=== PATIENT | female | born 1975 | race Hispanic/Latino ===

== ENCOUNTER 2019-10-22 10:45 | Emergency (ER) | payer OTHER ==
[2019-10-22] MEDS ORDERED: LORAZEPAM 2 MG/ML 1 ML VIAL ONE (11:07)
[2019-10-22] MEDS ORDERED: ZIPRASIDONE MESYLATE 20 MG/VIAL IM ONE (11:07)
[2019-10-22 11:51] LABS: APPEARANCE,URINE Cloudy (CLEAR); BILIRUBIN,URINE Negative (NEGATIVE); COLOR,URINE Dark Yellow (YELLOW); GLUCOSE, URINE (UA) Negative (NEGATIVE); KETONES,URINE 40 mg/dL (NEGATIVE); LEUKOCYTE ESTERASE ,URINE Small (NEGATIVE); NITRATE,URINE Negative (NEGATIVE); OCCULT BLOOD,URINE Negative (NEGATIVE); PROTEIN,URINE Trace mg/dL (NEGATIVE)
[2019-10-22 11:55] LABS: HCG,QUAL RESULT NEGATIVE (NEGATIVE)
[2019-10-22 11:57] LABS: AMPHET/METH SCREEN,URINE NEGATIVE (NEGATIVE); BARBITURATE SCREEN, URINE NEGATIVE (NEGATIVE); BENZODIAZEPINES SCREEN,URINE NEGATIVE (NEGATIVE); CANNABINOID SCREEN,URINE NEGATIVE (NEGATIVE); COCAINE SCREEN,URINE NEGATIVE (NEGATIVE); OPIATE SCREEN,URINE NEGATIVE (NEGATIVE); PHENCYCLIDINE SCREEN,URINE NEGATIVE (NEGATIVE)
[2019-10-22 12:06] LABS: BASOPHILS % (AUTO) 0.9 % (0.0-5.0); EOSINOPHILS % (AUTO) 0.8 % (0.0-8.0); HEMATOCRIT 37.9 % (36-48); LYMPHOCYTES % (AUTO) 25.3 % (21.0-51.0); MEAN CORPUSCULAR HEMOGLOBIN 29.7 pg (27.0-33.0); MEAN CORPUSCULAR HGB CONC 33.5 g/dL (32.0-36.0); MEAN CORPUSCULAR VOLUME 88.8 fL (79-99); MONOCYTES % (AUTO) 6.3 % (3.0-13.0); NEUTROPHILS % (AUTO) 66.6 % (40.0-77.0); PLATELET COUNT (AUTO) 255 K/uL (130-400); RED BLOOD CELL COUNT(AUTO) 4.27 MIL/uL (4.00-5.50); WHITE BLOOD COUNT (AUTO) 7.4 K/uL (4.8-10.8)
[2019-10-22 12:40] LABS: BACTERIA,URINE Few /HPF (None Seen); MUCUS,URINE Few LPF (None Seen); RBC,URINE 0-1 /HPF (0-1); SQUAMOUS EPITHELIAL CELL,UR Moderate /HPF (0-2)
[2019-10-22 12:43] LABS: SALICYLATE < 2.8 mg/dL (2.8-20.0)
[2019-10-22 12:44] LABS: ACETAMINOPHEN < 1 mcg/mL (10-30); ALCOHOL, BLOOD < 3 mg/dL (0-10)
[2019-10-22 13:12] LABS: CARBON DIOXIDE 20 mmol/L (21-32); CHLORIDE 102 mmol/L (101-111); CREATININE 0.8 mg/dL (0.5-1.5); GLOMERULAR FILTR. RATE CALC 83 mL/min (>60); GLUCOSE,RANDOM 87 mg/dL (70-105); SODIUM SERUM 136 mmol/L (136-145); UREA NITROGEN, BLOOD 18 mg/dL (7-18)
[2019-10-22 13:18] LABS: ALANINE AMINOTRANSFERASE 23 U/L (12-78); ALBUMIN 4.3 g/dL (3.5-5.0); ASPARTATE AMINOTRANSFERASE 21 U/L (10-37); BILIRUBIN,TOTAL 0.7 mg/dL (0.2-1.0)
[2019-10-22] MEDS ORDERED: POTASSIUM BICARB/CIT AC 25 MEQ TABLET.EFF ONE (13:20)
== END 2019-10-22 18:11 | disposition home or self-care (01) ==
LOC: EDH 10:45
DX: F29 Unspecified psychosis not due to a substance or known physiological condition (principal); F31.9 Bipolar disorder, unspecified
CPT/HCPCS: 36415; 80053; 80305; 81001; 81025; 82550; 85025; 87077; 87088; 87186; 93005; 96372 ×2; 99285; G0480 ×2; G0481; J2060; J3486

== ENCOUNTER 2024-07-29 02:13 | Emergency (ER) | payer BC, OTHER ==
[~2024-07-29] VITALS: Ht 160 cm; Wt 63.5 kg
[2024-07-29 02:14] VITALS: BP 131/89; PULSE 128; RESP 20; TEMP 98.5
== END 2024-07-29 02:27 | disposition left against medical advice (07) ==
LOC: EDH 02:13
DX: R03.0 Elevated blood-pressure reading, without diagnosis of hypertension (principal); Z53.21 Procedure and treatment not carried out due to patient leaving prior to being seen by health care provider

== ENCOUNTER 2024-08-16 16:12 | Emergency (ER) | payer BC ==
[~2024-08-16] VITALS: Ht 160 cm; Wt 60.3 kg
--- NOTE | 2024-08-16 16:29 | ERN ---
ED Note History of Present Illness Stated Complaint: MECHANICAL FALL Time Seen by MD: 16:15 Dictation: Patient is a 49-year-old female coming in today with a long history of being admitted to [facility] this weekend and she was in a wet bathroom it is the same the a same level fall. She states she landed on her back and left posterior shoulder. She states she had told the staff that she had fallen however they were busy with the another patient who was more psychiatric emergent then she was and could not tend to her at that time. She denies LOC no nausea vomiting no blood thinners states she does history of orthostasis and is dizzy apparently she is complaining of posterior pelvic pain more to the right, left posterior thoracic left posterior shoulder pain. She states she was discharged on Tuesday however did not think to go and be seen until today when she went to [facility] and was told to come to the emergency room. 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 INTEGUMENTARY: Negative except for HPI NEUROLOGICAL/PSYCH: Negative except for HPI dizziness HEMATOLOGIC/LYMPHATIC: Negative except for HPI All Systems Negative, Except as noted above. 13 point review of systems assessed and all negative except for above. Initial Vital Sign VS Vital Signs Date Time Temp Pulse Resp B/P (MAP) Pulse Ox O2 Delivery O2 Flow Rate FiO2 08/16/24 16:35 97.9 85 16 121/61 97 Room Air 08/16/24 16:49 0 21 Physical Exam Dictation Vital Signs reviewed General Appearance: Alert, oriented x 3, mild acute distress, well developed, nourished. Head and Face: non-traumatic. Eyes: PERRL, pink conjunctivas, eyelid no trauma, anterior chamber with arcus senilis. Ears: Pinnas intact and no signs of trauma or erythema ear canals clear and no discharge TM no erythema Nose: No discharge, no bleeding. Oropharynx: Mouth normal, tongue pink, pharynx clear,no erythema, tonsils no exudates, no abscesses noted, mucous membrane moist Neck: Supple, non-tender, no thyromegaly, no masses, no JVD, no bruits no midline spine pain Breast:Deferred Chest:No tenderness, no crepitus, no paradoxical movement, no retractions Lungs:Clear, well-ventilated, symmetric, no rales, no wheezing, no rhonchi, no stridor, good breath sounds bilaterally Heart: Regular rate, regular rhythm, no murmur, no gallops Vascular: no peripheral edema, Abdomen: Soft, positive bowel sounds, nondistended, no guarding, nontender, no rebound, no masses no hepatomegaly, no splenomegaly, no Zambrano's sign, no hernias. Rectal: Deferred Genital: Deferred Neurological: Normal speech, motor function intact, sensory function intact neurologically intact, speech is clear NIH is 0 Musculoskeletal: Neck nontender, right posterior pelvis and low lumbar tenderness. Also mild tenderness to the posterior left shoulder and left lateral thoracic area. Extremities: nontender, full range of motion Skin: Color pink, dry, no turgor, no rash, no lacerations, no abrasions, no contusions. Lymphatic: Deferred Results (Laboratory/Radiology) Laboratory/Radiology Laboratory Tests Test 08/16/24 16:47 White Blood Count 7.5 K/uL (4.8-10.8) Red Blood Count 4.46 MIL/uL (4.00-5.50) Hemoglobin 13.9 g/dL (12.0-16.0) Hematocrit 40.1 % (36-48) Mean Corpuscular Volume 89.9 fL (79-99) Mean Corpuscular Hemoglobin 31.2 pg (27.0-33.0) Mean Corpuscular Hemoglobin Concent 34.7 g/dL (32.0-36.0) Red Cell Distribution Width 12.1 % (11.0-15.5) Platelet Count 262 K/uL (130-400) Mean Platelet Volume 8.2 fL (7.5-10.5) Immature Granulocyte % (Auto) 0.1 % (0-1) Neutrophils (%) (Auto) 51.0 % (40.0-77.0) Lymphocytes (%) (Auto) 40.0 % (21.0-51.0) Monocytes (%) (Auto) 6.5 % (3.0-13.0) Eosinophils (%) (Auto) 1.6 % (0.0-8.0) Basophils (%) (Auto) 0.8 % (0.0-5.0) Neutrophils # (Auto) 3.8 K/uL (1.8-7.7) Lymphocytes # (Auto) 3.0 K/uL (1.0-4.8) Monocytes # (Auto) 0.5 K/uL (0.1-1.0) Eosinophils # (Auto) 0.12 K/uL (0.00-0.70) Basophils # (Auto) 0.06 K/uL (0.00-0.20) Absolute Immature Granulocyte (auto 0.01 K/uL (0-1) Nucleated Red Blood Cells 0.0 % (0.0-0.19) Sodium Level 139 mmol/L (136-145) Potassium Level 3.9 mmol/L (3.5-5.1) Chloride Level 105 mmol/L (101-111) Carbon Dioxide Level 31 mmol/L (21-32) Blood Urea Nitrogen 8 mg/dL (7-18) Creatinine 0.6 mg/dL (0.5-1.0) Glomerular Filtration Rate Calc 111 mL/min (>90) Random Glucose 93 mg/dL (70-105) Total Calcium 8.8 mg/dL (8.5-10.1) Troponin I High Sensitivity 4 ng/L (4-50) Serum Test, Qualitative NEGATIVE (NEGATIVE) Labs Reviewed?: Yes EKG Comment: EKG normal sinus rhythm/heart rate 74/axis normal/no ectopy ED Course ED Course Orders Procedure Category Date Status Time Pelvis 1-2vws RAD 08/16/24 Resulted 16:24 Shoulder Comp 2+Vws Lt RAD 08/16/24 Resulted 16:24 Thoracic Spine 2vws RAD 08/16/24 Resulted 16:24 Cbc With Differential LAB 08/16/24 Complete 16:24 Troponin I High LAB 08/16/24 Complete Sensitivity 16:24 12 Lead Ekg Tracing- EKG 08/16/24 Complete Technical 16:24 Basic Metabolic Panel LAB 08/16/24 Complete 16:24 Acetaminophen 500mg PHA 08/16/24 Complete Tab (Tylenol 500mg T 16:30 Testing, LAB 08/16/24 Complete Serum Hcg 17:01 Current Medications Medications (Trade) Dose Ordered Sig/Cira Route PRN Reason Start Time Stop Time Status Last Admin Dose Admin Acetaminophen (TYLenol 500MG TAB) 1,000 mg ONCE ONCE PO 08/16/24 16:30 08/16/24 16:40 DC 08/16/24 17:42 Vital Signs Date Time Temp Pulse Resp B/P (MAP) Pulse Ox O2 Delivery O2 Flow Rate FiO2 08/16/24 19:41 98.2 80 16 98 Room Air* 0 21 08/16/24 16:49 98.1 82 16 120/60 98 Room Air* 0 21 08/16/24 16:35 97.9 85 16 121/61 97 Room Air 1920/pelvic x-ray negative Left shoulder x-ray negative Thoracic x-ray negative 1925/patient is hemodynamically stable and neurologically intact. She will be discharged home with multiple contusions and told to follow up with the doctor at [facility] for any further complaints. HEART Score Response (Comments) Value History: Low suspicion (0) 0 Age: 45-65yrs (+1) 1 Risk Factors: No known risk factors (0) 0 Initial Troponin: Normal limit (0) 0 Total 1 Medical Decision Making MDM MDM: Differential diagnosis: ACS/AMI/electrolyte imbalance/dehydration/contusion/fra cture Rationale: Tests considered and ordered secondary to shared decision making include: Radiology/labs/EKG Previous outside records reviewed: Old ER visits. Risk of complication and/or morbidity or mortality of patient management: None Medications-Per medication reconciliation none Need for hospitalization: Patient does not meet criteria for hospitalization. No Need for emergency major/minor surgery: No There are no social concerns with this patient. Prescription drug management ibuprofen Prescriptions will include symptomatic care Patient's prior external medical records from other ER visits were reviewed by me as indicated. Prior testing and results from previous visits were reviewed. Prior tests were taken into account with medical decision making and resource utilization, independent historian/historians were used to obtain complete medical history. I independently interpreted the test that were performed, results were reviewed by me and considered findings on radiology if ordered. Medical management and examination interpretation discussions were had by me with other qualified healthcare professionals as indicated for the patient's care. DX & DISP Disposition: Discharge Departure Impression: Primary Impression: Multiple contusions of trunk Additional Impression: Fall Condition: Stable Scripts Ibuprofen (Ibuprofen) 600 Mg Tablet 600 MG PO Q6H PRN for PAIN, #30 TAB Prov: XIOMY HAGEN NP 08/16/24 Additional Instructions: Follow-up with primary care provider in 1 to 2 days. Take medications as directed here in the emergency room. Okay to continue home medications unless otherwise discussed during your visit in the emergency room today. Return to your nearest emergency room if symptoms worsen or if there is no improvement. Call 911 if you need immediate assistance. Take Tylenol or Motrin [id number] as needed and if no contraindications are present. Increase oral hydration. A wound culture or urine culture was ordered here in the em ergency room department please follow-up with primary care provider and advise them to get repeat ports from our facility. If you had any Adan wrap/splints that were applied here, please do not remove them until you see your primary care or specialty. Diet and activity as tolerated. Take ibuprofen as needed with food for pain. Follow back up with your doctor at [facility] for management Referrals: DONNA CRABTREE (PCP) Time of Disposition: 19:27 I have reviewed the case, and I agree with, Diagnosis and Plan XIOMY HAGEN NP Aug 16, 2024 16:29 ALYCE ALBA DO Aug 17, 2024 12:13
--- NOTE | 2024-08-16 16:32 | EKG ---
[facility] Test Date: 2024-08-16 Test Time: 16:30:13 Pat Name: BRANDY ENCARNACION Department: [facility] Room: Gender: F Etl Data Architect: [id number] Requested By: XIOMY HAGEN Order Number: [id number] Reading MD: Chrissy Daniels Measurements Intervals Roby Rate: 74 P: 51 MD: 165 QRS: -27 QRSD: 82 T: 16 QT: 356 QTc: 395 Interpretive Statements Sinus rhythm Compared to ECG 10/22/2019 16:32:16 No significant changes Electronically Signed On 08-18-2024 08:39:49 HAND LEATHER TRIMMER by Chrissy Daniels Please click the below link to view image of tracing.
[2024-08-16 16:49] VITALS: BP 120/60
[2024-08-16 17:04] LABS: BASOPHILS # (AUTO) 0.06 K/uL (0.00-0.20); BASOPHILS % (AUTO) 0.8 % (0.0-5.0); EOSINOPHILS # (AUTO) 0.12 K/uL (0.00-0.70); EOSINOPHILS % (AUTO) 1.6 % (0.0-8.0); HEMATOCRIT 40.1 % (36-48); IMMATURE GRANULOCYTE ABSOLUTE 0.01 K/uL (0-1); MEAN CORPUSCULAR HEMOGLOBIN 31.2 pg (27.0-33.0); MEAN CORPUSCULAR HGB CONC 34.7 g/dL (32.0-36.0); MEAN CORPUSCULAR VOLUME 89.9 fL (79-99); MONOCYTES # (AUTO) 0.5 K/uL (0.1-1.0); MONOCYTES % (AUTO) 6.5 % (3.0-13.0); NEUTROPHILS # (AUTO) 3.8 K/uL (1.8-7.7); PLATELET COUNT (AUTO) 262 K/uL (130-400); RED BLOOD CELL COUNT(AUTO) 4.46 MIL/uL (4.00-5.50); RED CELL DISTRIBUTION WIDTH 12.1 % (11.0-15.5); WHITE BLOOD COUNT (AUTO) 7.5 K/uL (4.8-10.8)
[2024-08-16 17:06] LABS: CREATININE 0.6 mg/dL (0.5-1.0); POTASSIUM 3.9 mmol/L (3.5-5.1)
[2024-08-16] MEDS: acetaMINOPHEN 500 MG TABLET PO ONE (17:42)
[2024-08-16] MEDS ORDERED: IBUP-2070 PO (19:28)
[2024-08-16 19:41] VITALS: PULSE 80; RESP 16; TEMP 98.3; O2SAT 98
--- NOTE | 2024-08-16 20:50 | HMCIMG ---
THORACIC SPINE 2VWS CLINICAL HISTORY: Left lateral T-spine pain status post fall sat COMPARISON: None. TECHNIQUE: AP and lateral images were obtained. FINDINGS: There are normal appearing vertebral bodies. Interspace heights are well preserved. There are no visible fractures. Soft tissues appear unremarkable. IMPRESSION: Normal views of the thoracic spine.
--- NOTE | 2024-08-16 20:50 | HMCIMG ---
SHOULDER COMP 2+VWS LT CLINICAL HISTORY: Left posterior shoulder pain status post fall Tuesday COMPARISON: None TECHNIQUE: 3 images were obtained. FINDINGS: No obvious fracture or dislocation. No joint effusion. The soft tissues appear unremarkable. No radiopaque foreign bodies. IMPRESSION: No acute findings.
--- NOTE | 2024-08-16 20:55 | HMCIMG ---
PELVIS 1-2VWS REASON: Bilateral posterior pelvic pain status post fall Tuesday TECHNIQUE: Markus view was obtained. FINDINGS: Bones appear normal. There are no visible fractures. Joint spaces are unremarkable. Soft tissues appear normal as well. IMPRESSION: 1. Negative AP pelvis.
== END 2024-08-16 19:49 | disposition home or self-care (01) ==
LOC: EDH 16:12
DX: S30.0XXA Contusion of lower back and pelvis, initial encounter (principal); Z98.51 Tubal ligation status; W18.39XA Other fall on same level, initial encounter; Y93.89 Activity, other specified; Y92.89 Other specified places as the place of occurrence of the external cause; Y99.8 Other external cause status
CPT/HCPCS: 36415; 72070; 72170; 73030; 80048; 84484; 84703; 85025; 93005; 99284

== ENCOUNTER 2024-08-18 04:54 | Emergency (ER) | payer BC ==
[~2024-08-18] VITALS: Ht 160 cm; Wt 61.7 kg
[~2024-08-18 04:54] MED LIST: IBUP-2070 PO
[2024-08-18 05:00] VITALS: TEMP 98.1
--- NOTE | 2024-08-18 05:05 | ERN ---
General Chief Complaint: Headache Stated Complaint: HEADACHE Time Seen by MD: 04:56 Source: patient History of Present Illness Initial Comments PATIENT IS A 49-YEAR-OLD FEMALE COMING IN TO BE EVALUATED FOR HEADACHE AND DIZZINESS. ALONG WITH THE HEADACHE AND DIZZINESS SHE STATES THAT SHE HAS BEEN UNDER LOT OF STRESS AND SHE HAS UPPER BACK PAIN. PATIENT HAS BEEN EVALUATED IN THE PAST FOR UPPER BACK PAIN WITH A IMAGING STUDIES WHICH HAS BEEN NEGATIVE. SHE STATES IT WAS ALL STEMMED FROM WITH A SEVEN IN WHICH STATES THAT SHE HAD AN ARGUMENT WITH A HAS BEEN DUE TO HIM BEING IN FACIAL. SINCE THEN SHE HAS BEEN UNDER LOT OF STRESS SHE STATES. 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 HEAD/FACE: NO SIGNS OF TRAUMA. EENT: NO EYE PAIN, NO BLURRED VISION, NO TEARING, NO DOUBLE VISION, NO EAR PAIN, NO EAR DISCHARGE, NO NOSE PAIN, NO NASAL CONGESTION, NO THROAT PAIN, NO THROAT SWELLING, NO MOUTH PAIN. RESPIRATORY: NO COUGH, NO ORTHOPNEA, NO SOB, NO STRIDOR, NO WHEEZING. CARDIOVASCULAR: NO CHEST PAIN, NO EDEMA, NO PALPITATIONS, NO SYNCOPE. GASTROINTESTINAL/ABDOMINAL: NO ABDOMINAL PAIN, NO CONSTIPATION, NO DIARRHEA, NO NAUSEA, NO VOMITING. GENITOURINARY: NO ABNORMAL DISCHARGE, NO DYSURIA, NO FREQUENT URINATION, NO HEMATURIA. NO COMPLAINTS OF PAIN IN THE GENITALS. MUSCULOSKELETAL: NO BACK PAIN, NO GOUT, NO JOINT PAIN, NO JOINT SWELLING, NO MUSCLE PAIN, NO MUSCLE STIFFNESS, NO NECK PAIN. INTEGUMENTARY: NO CHANGE IN COLOR, NO CHANGE IN HAIR/NAILS, NO DRYNESS, NO LESION, NO LUMPS, NO RASH. NEUROLOGICAL/PSYCH: NO ANXIETY, NOT DEPRESSED, NO EMOTIONAL PROBLEM, NO HEADACHE, NO NUMBNESS, NO PRE-EXISTING DEFICIT, NO HISTORY OF SEIZURES, NO TREMORS, NO WEAKNESS. HEMATOLOGIC/LYMPHATIC: NOT ANEMIC, NO HISTORY OF BLOOD CLOTS, NO APPARENT BLEEDING, NO BRUISING, GLANDS NOT SWOLLEN. ALL SYSTEMS NEGATIVE, EXCEPT NOTED. Physical Exam Physical Exam Dictation VITAL SIGNS: REVIEWED. GENERAL APPEARANCE: ALERT, ORIENTED X3, NO ACUTE DISTRESS, OBESE. HEAD AND FACE: NON-TRAUMATIC. EYES: PERRL, PINK CONJUNCTIVAS, EYELID NO TRAUMA, ANTERIOR CHAMBER CLEAR. EARS: PINNAS INTACT AND NO SIGNS OF TRAUMA OR ERYTHEMA. EAR CANALS CLEAR AND NO DISCHARGE. TMS NO ERYTHEMA. NOSE: NO DISCHARGE, NO BLEEDING. OROPHARYNX: MOUTH NORMAL, TEETH NO CARIES, TONGUE PINK. PHARYNX CLEAR, NO ERYTHEMA. TONSILS NO EXUDATES, NO ABSCESSES NOTED. MUCOUS MEMBRANE MOIST. NECK: SUPPLE, NON-TENDER, NO THYROMEGALY, NO MASSES, NO JVD, NO BRUITS. BREAST: DEFERRED. CHEST: NO TENDERNESS, NO CREPITUS, NO PARADOXICAL MOVEMENT, NO RETRACTIONS. LUNGS: CLEAR, WELL-VENTILATED, SYMMETRIC, NO RALES, NO WHEEZING, NO RHONCHI, NO STRIDOR, GOOD BREATH SOUNDS BILATERALLY. HEART: REGULAR RATE, REGULAR RHYTHM, NO MURMUR, NO GALLOPS. VASCULAR: NO PERIPHERAL EDEMA. ABDOMEN: SOFT, POSITIVE BOWEL SOUNDS, NONDISTENDED, NO GUARDING, NONTENDER, NO REBOUND, NO MASSES NO HEPATOMEGALY, NO SPLENOMEGALY, NO CASAS'S SIGN, NO HERNIAS. RECTAL: DEFERRED. GENITAL: DEFERRED. NEUROLOGICAL: NORMAL SPEECH, GROSS MOTOR FUNCTION INTACT, GROSS SENSORY FUNCTION INTACT. MUSCULOSKELETAL: NECK NONTENDER, FULL RANGE OF MOTION, BACK NONTENDER, FULL RANGE OF MOTION. EXTREMITIES: NONTENDER, FULL RANGE OF MOTION. SKIN: COLOR PINK, DRY, NO TURGOR, NO RASH, NO LACERATIONS, NO ABRASIONS, NO CONTUSIONS. LYMPHATICS: DEFERRED. Results Laboratory and Microbiology Lab and Micro Result Laboratory Tests Test 08/18/24 04:58 08/18/24 05:43 Urine Color COLORLESS (YELLOW) Urine Appearance CLEAR (CLEAR) Urine pH 7.0 (5.0-8.0) Urine Specific Hartly 1.005 (1.001-1.031) Urine Protein NEGATIVE mg/dL (NEGATIVE) Urine Glucose (UA) NEGATIVE mg/dL (NEGATIVE) Urine Ketones NEGATIVE mg/dL (NEGATIVE) Urine Occult Blood NEGATIVE (NEGATIVE) Urine Nitrate NEGATIVE (NEGATIVE) Urine Bilirubin NEGATIVE mg/dL (NEGATIVE) Urine Urobilinogen 0.2 mg/dL (0.2-1.0) Urine Leukocyte Esterase NEGATIVE Rojelio/uL Urine RBC None /HPF (0-1) Urine WBC 0-1 /HPF (0-1) Urine Squamous Epithelial Cells RARE /HPF (0-2) Urine Bacteria None /HPF (None Seen) Urine HCG, Qualitative NEGATIVE (NEGATIVE) White Blood Count 4.2 K/uL (4.8-10.8) L Red Blood Count 4.30 MIL/uL (4.00-5.50) Hemoglobin 13.4 g/dL (12.0-16.0) Hematocrit 38.2 % (36-48) Mean Corpuscular Volume 88.8 fL (79-99) Mean Corpuscular Hemoglobin 31.2 pg (27.0-33.0) Mean Corpuscular Hemoglobin Concent 35.1 g/dL (32.0-36.0) Red Cell Distribution Width 12.0 % (11.0-15.5) Platelet Count 250 K/uL (130-400) Mean Platelet Volume 8.1 fL (7.5-10.5) Immature Granulocyte % (Auto) 0.5 % (0-1) Neutrophils (%) (Auto) 71.3 % (40.0-77.0) Lymphocytes (%) (Auto) 26.1 % (21.0-51.0) Monocytes (%) (Auto) 1.4 % (3.0-13.0) L Eosinophils (%) (Auto) 0.2 % (0.0-8.0) Basophils (%) (Auto) 0.5 % (0.0-5.0) Neutrophils # (Auto) 3.0 K/uL (1.8-7.7) Lymphocytes # (Auto) 1.1 K/uL (1.0-4.8) Monocytes # (Auto) 0.1 K/uL (0.1-1.0) Eosinophils # (Auto) 0.01 K/uL (0.00-0.70) Basophils # (Auto) 0.02 K/uL (0.00-0.20) Absolute Immature Granulocyte (auto 0.02 K/uL (0-1) Nucleated Red Blood Cells 0.0 % (0.0-0.19) Sodium Level 138 mmol/L (136-145) Potassium Level 4.1 mmol/L (3.5-5.1) Chloride Level 104 mmol/L (101-111) Carbon Dioxide Level 26 mmol/L (21-32) Blood Urea Nitrogen 14 mg/dL (7-18) Creatinine 0.7 mg/dL (0.5-1.0) Glomerular Filtration Rate Calc 107 mL/min (>90) Random Glucose 160 mg/dL (70-105) H Total Calcium 8.9 mg/dL (8.5-10.1) Labs Reviewed?: Yes MDM MDM: DIFFERENTIAL DIAGNOSIS: TENSION HEADACHE, STRESS, MUSCLE STRAIN PATIENT IS A 49-YEAR-OLD FEMALE COMING IN TO BE EVALUATED FOR TRAPEZIUS MUSCLE TENDERNESS CAUSING HEADACHES. SHE STATES THAT SHE HAS BEEN UNDER LOT OF STRESS DUE TO FAMILY ISSUES. THROUGHOUT ER VISIT PATIENT HAS BEEN STABLE SHE RECEIVED A MIGRAINE COCKTAIL STATES HE FEELS MUCH BETTER. WE WILL BE DISCHARGED IN STABLE CONDITION I DID ADVISED HER APPROPRIATE FOLLOW UP WITH PCP FOR LONG-TERM MANAGEMENT OF TENSION HEADACHES. ED Course Orders Procedure Category Date Status Time Urinalysis Profile LAB 08/18/24 Complete 04:59 ,Urine Test LAB 08/18/24 Complete 04:59 Cbc With Differential LAB 08/18/24 Complete 05:01 Basic Metabolic Panel LAB 08/18/24 Complete 05:01 0.9%Nacl 1000ml (Ns PHA 08/18/24 Complete 1000ml) 05:30 Prochlorperazine PHA 08/18/24 Complete 10mg/2ml Inj 05:30 Diphenhydramine Hcl PHA 08/18/24 Complete (Benadryl Inj) 05:30 Acetaminophen 500mg PHA 08/18/24 Complete Tab (Tylenol 500mg T 05:30 Current Medications Medications (Trade) Dose Ordered Sig/Cira Route PRN Reason Start Time Stop Time Status Last Admin Dose Admin Acetaminophen (TYLenol 500MG TAB) 500 mg ONCE ONCE PO 08/18/24 05:30 08/18/24 05:31 DC 08/18/24 06:02 Diphenhydramine HCl (BENAdryl INJ) 25 mg ONCE ONCE IV 08/18/24 05:30 08/18/24 05:31 DC 08/18/24 06:01 Prochlorperazine Edisylate (Compazine 10mg/ 2ml Inj) 10 mg ONCE ONCE IV 08/18/24 05:30 08/18/24 05:31 DC 08/18/24 06:01 Sodium Chloride 1,000 ml @ 0 mls/hr ONCE ONCE IV 08/18/24 05:30 08/18/24 05:31 DC 08/18/24 06:01 Vital Signs Date Time Temp Pulse Resp B/P (MAP) Pulse Ox O2 Delivery O2 Flow Rate FiO2 08/18/24 06:10 70 18 112/67 96 Room Air* 0 21 08/18/24 05:00 98.1 67 18 104/45 97 Room Air 0 DX & DISP Disposition: Discharge Departure Impression: Primary Impression: Tension headache, chronic Condition: Stable Scripts Diclofenac Sodium (Voltaren Arthritis Pain) 1 % Gel..gram. 4 GM TP BID for 10 Days, #1 TUBE Prov: ALEXANDER CAAL MD 08/18/24 Additional Instructions: FOLLOW-UP WITH PRIMARY CARE PROVIDER IN 1 TO 2 DAYS. TAKE MEDICATIONS DIRECTED HERE IN THE EMERGENCY ROOM. OKAY TO CONTINUE HOME MEDICATIONS UNLESS OTHERWISE DISCUSSED DURING YOUR VISIT IN THE EMERGENCY ROOM TODAY. RETURN TO YOUR NEAREST EMERGENCY ROOM IF SYMPTOMS WORSEN OR IF THERE IS NO IMPROVEMENT. CALL 911 IF YOU NEED IMMEDIATE ASSISTANCE. TAKE TYLENOL [id number] NEEDED AND IF NO CONTRAINDICATIONS ARE PRESENT. INCREASE ORAL HYDRATION. A WOUND CULTURE OR URINE CULTURE WAS ORDERED HERE IN THE EMERGENCY ROOM DEPARTMENT PLEASE FOLLOW-UP WITH PRIMARY CARE PROVIDER AND ADVISE THEM TO GET REPEAT PORTS FROM OUR FACILITY. IF YOU HAD ANY URIEL WRAP/SPLINTS THAT WERE APPLIED HERE, PL EASE DO NOT REMOVE THEM UNTIL YOU SEE YOUR PRIMARY CARE OR SPECIALTY. REFERRALS: Referrals: DONNA CRABTREE (PCP) Time of Disposition: 06:16 ALEXANDER CAAL MD Aug 18, 2024 05:05
[2024-08-18 05:10] LABS: APPEARANCE,URINE CLEAR (CLEAR); BILIRUBIN,URINE NEGATIVE (NEGATIVE); COLOR,URINE COLORLESS (YELLOW); GLUCOSE, URINE (UA) NEGATIVE (NEGATIVE); KETONES,URINE NEGATIVE (NEGATIVE); LEUKOCYTE ESTERASE ,URINE NEGATIVE Leu/uL (NEGATIVE); NITRATE,URINE NEGATIVE (NEGATIVE); OCCULT BLOOD,URINE NEGATIVE (NEGATIVE); PROTEIN,URINE NEGATIVE (NEGATIVE); UROBILINOGEN,URINE 0.2 mg/dL (0.2-1.0)
[2024-08-18 05:11] LABS: ADD UA MICROSCOPIC YES
[2024-08-18 05:12] LABS: MUCUS,URINE RARE LPF (None Seen); SQUAMOUS EPITHELIAL CELL,UR RARE /HPF (0-2); WBC,URINE 0-1 /HPF (0-1)
[2024-08-18 05:13] LABS: HCG,QUALITATIVE URINE NEGATIVE (NEGATIVE)
[2024-08-18 05:51] LABS: BASOPHILS # (AUTO) 0.02 K/uL (0.00-0.20); BASOPHILS % (AUTO) 0.5 % (0.0-5.0); EOSINOPHILS # (AUTO) 0.01 K/uL (0.00-0.70); EOSINOPHILS % (AUTO) 0.2 % (0.0-8.0); HEMATOCRIT 38.2 % (36-48); IMMATURE GRANULOCYTE ABSOLUTE 0.02 K/uL (0-1); LYMPHOCYTES # (AUTO) 1.1 K/uL (1.0-4.8); LYMPHOCYTES % (AUTO) 26.1 % (21.0-51.0); MEAN CORPUSCULAR HEMOGLOBIN 31.2 pg (27.0-33.0); MEAN CORPUSCULAR HGB CONC 35.1 g/dL (32.0-36.0); MEAN CORPUSCULAR VOLUME 88.8 fL (79-99); MONOCYTES # (AUTO) 0.1 K/uL (0.1-1.0); MONOCYTES % (AUTO) 1.4 % (3.0-13.0); NEUTROPHILS % (AUTO) 71.3 % (40.0-77.0); PLATELET COUNT (AUTO) 250 K/uL (130-400); WHITE BLOOD COUNT (AUTO) 4.2 K/uL (4.8-10.8)
[2024-08-18 05:58] LABS: CREATININE 0.7 mg/dL (0.5-1.0); POTASSIUM 4.1 mmol/L (3.5-5.1)
[2024-08-18] MEDS: 0.9%NACL 1000ML 1,000 ML IV ONE (06:01)
[2024-08-18] MEDS: PROCHLORPERAZINE 10MG/2ML INJ IV ONE (06:01)
[2024-08-18] MEDS: DiphenhydrAMINE HCL 50 MG/ML VIAL IV ONE (06:01)
[2024-08-18] MEDS: acetaMINOPHEN 500 MG TABLET PO ONE (06:02)
[2024-08-18 06:10] VITALS: BP 112/67; PULSE 70; RESP 18; O2SAT 96
[2024-08-18] MEDS ORDERED: DICL20GE TP (06:17)
== END 2024-08-18 06:47 | disposition home or self-care (01) ==
LOC: EDH 04:54
DX: G44.229 Chronic tension-type headache, not intractable (principal); Z79.899 Other long term (current) drug therapy; Z98.51 Tubal ligation status
CPT/HCPCS: 99284; 96374; 96361; 96375; 80048; 85025; 81001; 81025; 36415; J1200; J7030; J0780

== ENCOUNTER 2024-09-12 22:04 | Emergency (ER) | payer BC ==
[~2024-09-12] VITALS: Ht 160 cm; Wt 63.5 kg
[~2024-09-12 22:04] MED LIST changes: +DICL20GE TP
--- NOTE | 2024-09-12 22:50 | NUR ---
PT CARE ASSUMED AT THIS TIME
--- NOTE | 2024-09-12 22:54 | ERN ---
General Chief Complaint: Mechanical Fall Stated Complaint: C/O PAIN TO LT LEG, BACK PAIN AFTER FALL TODAY Time Seen by MD: 22:12 History of Present Illness Initial Comments 49-year-old female with a ground level fall in the parking lot she has pain in her low back that radiates down her left leg to her to her toe she has anterior lower abdominal pain and then also has some pain in her he had hands and hips. Approximately a week ago she had a spontaneous intracerebral hemorrhage and was evaluated at [facility] and then discharged with precautions. Allergies: Coded Allergies: No Known Drug Allergies (Unverified Allergy, Unknown, 08/16/24) Home Meds Active Scripts Diclofenac Sodium (Voltaren Arthritis Pain) 1 % Gel..gram., 4 GM TP BID for 10 Days, #1 TUBE Prov:ALEXANDER CAAL MD 08/18/24 Ibuprofen (Ibuprofen) 600 Mg Tablet, 600 MG PO Q6H PRN for PAIN, #30 TAB Prov:XIOMY HAGEN SCREEN ROLLER 08/16/24 Past Medical History Past Medical History: Anemia, Migraines, Other Medical History Other: HX OF RAYNAUDS DISEASE Past Surgical History: Other Surgical History Other: TUBAL LIGATION Female( History) History: Not Applicable ROS Dictation Review of systems is negative for shortness of breath or chest pain or mental status changes or visual changes. It is also negative for nausea or vomiting. No changes in urination no changes in bowel movements. She is able to walk she is able to move all of her extremities she does not have lightheadedness or dizziness Physical Exam General Appearance: (+) mild distress Orientation: (+) oriented x 3 Head/Face Trauma: No Eye: bilateral eye normal inspection, bilateral eye PERRL, bilateral eye EOMI Neck: (+) normal inspection, (+) supple, (+) full range of motion, (+) non- tender Respiratory: (+) chest non-tender, (+) lungs clear, (+) well ventilated Heart: (+) regular, (+) no gallop Vascular: (+) no edema, (+) normal peripheral pulse, (+) no JVD Gastrointestinal: (+) soft, (+) non-tender, (+) no organomegaly, (+) bowel sound present Back: (+) no CVA tenderness Extremities Comment Patient has full range of motion to her bilateral hands bilateral elbows bilateral shoulders and is nontender to deep palpation in her hands fingers forearms and elbows. Neurologic/Psychiatric: (+) normal speech Reflexes: Normal Reflexes Comment Patient has deep tendon reflexes symmetric re symmetrical bilaterally and both upper and lower extremities MDM Given the patient's past medical history of an intracerebral hemorrhage a week ago I will do a CT scan of her head. I will also do a plain CT scan of her abdomen and pelvis mainly to rule out lumbar spine fractures hip fractures and possible intra-abdominal injury. Patient's CT scan is of her head is negative, no residual signs of bleeding from a few weeks ago. CT of patient's lumbar spine is negative for acute fractures although it does seem like she has narrowing of the disc space between L5 and S1 possible spondylolisthesis. This would explain the patient's numbness and tingling that radiates down her left leg calf foot and toes. ED Course Orders Procedure Category Date Status Time Ibuprofen 800 Mg Tab PHA 09/12/24 Complete (Motrin) 22:30 Ketorolac PHA 09/12/24 Complete Tromethamine 30mg/Ml 22:30 Ct Abdomen/Pelvis W/O CT 09/12/24 Resulted Contrast 22:52 Ct Head/Brain W/O CT 09/12/24 Resulted Contrast 22:52 Current Medications Medications (Trade) Dose Ordered Sig/Cira Route PRN Reason Start Time Stop Time Status Last Admin Dose Admin Ibuprofen (moTRIN) 800 mg ONCE ONCE PO 09/12/24 22:30 09/12/24 22:31 DC 09/12/24 23:02 Ketorolac Tromethamine (toRADol) 30 mg ONCE ONCE IVP 09/12/24 22:30 09/12/24 22:31 DC 09/12/24 23:02 Vital Signs Date Time Temp Pulse Resp B/P (MAP) Pulse Ox O2 Delivery O2 Flow Rate FiO2 09/12/24 22:51 98.1 75 15 121/76 97 Room Air* 0 21 09/12/24 22:08 97.7 83 20 121/77 98 Room Air DX & DISP Disposition: Discharge Departure Impression: Primary Impression: Fall Additional Impressions: Radiculopathy due to lumbar intervertebral disc disorder, Sciatica Condition: Stable Additional Instructions: FU with audiology technician for sciatica. Referrals: DONNA CRABTREE (PCP) INDRA CONKLIN MD Sep 12, 2024 22:53
[2024-09-12] MEDS: ibuPROFEN 800 MG TAB PO ONE (23:02)
[2024-09-12] MEDS: ketOROlac 30MG VIAL (30MG/ML) IVP ONE (23:02)
--- NOTE | 2024-09-12 23:29 | HMCIMG ---
CT HEAD/BRAIN W/O CONTRAST HISTORY: Status post fall COMPARISON: None TECHNIQUE: Multiple sequential axial images of the head were obtained from the base of the skull through vertex. Patient was not given contrast through intravenous route. FINDINGS: The ventricles and extraventricular CSF spaces are nondilated for patient's age. There is no midline shift, mass effect or herniation. No acute intracranial bleed is seen. Visualized portion of the paranasal sinuses are grossly within normal limits. IMPRESSION: 1. No acute intracranial bleed is seen. CT was performed with one or more following dose reduction techniques: automated exposure control, adjustment of the mA and kv according to patient's size, or use of a iterative reconstruction technique.
--- NOTE | 2024-09-12 23:38 | HMCIMG ---
CT ABDOMEN/PELVIS W/O CONTRAST HISTORY: Status post fall COMPARISON: None TECHNIQUE: Multiple sequential axial images of the abdomen and pelvis were obtained from the dome of the diaphragm through symphysis pubis. Patient was not given contrast through intravenous route. Oral contrast was not given. FINDINGS: No pleural effusion is seen bilaterally. There is no evidence of parenchymal disease or pulmonary nodule of the visualized lower lungs. Degenerative changes of the thoracolumbar spine are present. The heart is not enlarged. Liver measured 14.4 cm. Postcholecystectomy changes are seen. The liver, spleen, adrenal glands and pancreas are unremarkable. There is no evidence of hydronephrosis bilaterally. No evidence of renal stone is seen. Fecal material is seen in the colon. There are normal size retroperitoneal and mesenteric lymph nodes. No ascites is seen. No CT evidence of acute appendicitis is seen. Pelvic sidewalls are symmetric bilaterally. Bladder is well distended without wall thickening. IMPRESSION: 1. No acute findings. CT was performed with one or more following dose reduction techniques: automated exposure control, adjustment of the mA and kv according to patient's size, or use of a iterative reconstruction technique.
--- NOTE | 2024-09-13 01:46 | NUR ---
PT A&OX4. PT DENIES CP. PT DENIES SOB. PT HAS STEADY AND BALANCED GAIT.
[2024-09-13] MEDS: 0.9%NACL 1000ML 1,000 ML IV ONE (01:51)
[2024-09-13 02:48] VITALS: BP 108/82; PULSE 75; RESP 17; TEMP 98.1; O2SAT 97
== END 2024-09-13 02:49 | disposition home or self-care (01) ==
LOC: EDH 22:04
DX: M51.16 Intervertebral disc disorders with radiculopathy, lumbar region (principal); Z79.1 Long term (current) use of non-steroidal anti-inflammatories (NSAID); Z98.51 Tubal ligation status; W18.39XA Other fall on same level, initial encounter; Y93.89 Activity, other specified; Y92.89 Other specified places as the place of occurrence of the external cause; Y99.8 Other external cause status
CPT/HCPCS: 99285; 70450; 96374; 96361; 74176; J1885; J7030